=== PATIENT | male | born 1970 | race Caucasian/White ===

== ENCOUNTER 2020-12-06 07:39 | Inpatient (IN) ==
[2020-12-06] MEDS ORDERED: ONDANSETRON 4 MG/2 ML VIAL IV STA (07:50)
[2020-12-06] MEDS ORDERED: ASPIRIN 325 MG TABLET PO STA (07:50)
[2020-12-06] MEDS ORDERED: NITROGLYCERIN 2% OINT 1 INCH/GM PACK TOP STA (07:50)
[2020-12-06] MEDS ORDERED: MORPHINE 10 MG/1 ML VIAL IV STA (07:50)
[2020-12-06] MEDS ORDERED: MORPHINE 2 MG/1 ML SYRINGE ONE (08:01)
[2020-12-06 08:15] LABS: Basophils # 0.1 10*3/uL (0.0-0.2); Basophils % 0.7 % (0.0-0.8); Eosinophils # 0.1 10*3/uL (0.0-0.87); Eosinophils % 1.9 % (0.00-10.9); Hematocrit 54.5 VOL% (42.0-52.0); Hemoglobin 18.9 GM/DL (14.0-18.0); Immature Granulocytes Absolute 0.07 #; Lymphocytes # 1.8 10*3/uL (1.4-4.0); Lymphocytes % 25.8 % (21.2-54.2); Mean Corpuscular HGB Conc 34.7 GM/DL (32-36); Mean Corpuscular Volume 89.3 FL (87-102); Mean Platelet Volume 11.4 FL (9.6-12.0); Monocytes % 8.1 % (1.7-12.7); Neutrophils % 62.5 % (38.7-73.9); Platelet Count 222 T/CUMM (130-400); Red Cell Distribution Width 13.3 % (9.3-17.3)
[2020-12-06 08:39] LABS: Albumin 4.5 G/DL (3.4-5.0); Bilirubin,Total 2.9 MG/DL (0.20-1.00); Calcium 9.4 MG/DL (8.5-10.1); Osmolality,Calculated 276.7 MOS/KG (273-304); Total Protein 8.3 G/DL (6.4-8.2)
[2020-12-06] MEDS ORDERED: ENOXAPARIN 100 MG/ML SYRINGE SUBCUT STA ×2 (09:00)
[2020-12-06] MEDS ORDERED: MAGNESIUM SULF RIDER 2 GM/50 ML PREMIX IV PRN ×2 (09:22→09:24)
[2020-12-06] MEDS ORDERED: ZALEPLON 5 MG CAPSULE PO PRN (09:22)
[2020-12-06] MEDS ORDERED: MAGNESIUM SULF RIDER 4 GM/100 ML PREMIX IV PRN (09:22)
[2020-12-06] MEDS ORDERED: HEPARIN/NACL 0.9% 2 UNITS/ML 2,000 UNIT/1,000 ML BAG IV ONE (09:24)
[2020-12-06] MEDS ORDERED: diphenhydrAMINE CAP 25 MG CAPSULE PO ONE (09:24)
[2020-12-06] MEDS ORDERED: LIDOCAINE 1% 20 ML VIAL ONE (09:24)
[2020-12-06] MEDS ORDERED: POTASSIUM CHLORIDE RIDER 10 MEQ/100 ML PREMIX IV PRN (09:24)
[2020-12-06] MEDS ORDERED: DIAZEPAM 5 MG TABLET PO ONE (09:24)
[2020-12-06] MEDS ORDERED: METOPROLOL TARTRATE 5 MG/5 ML VIAL IV STA (09:27)
[2020-12-06 09:44] LABS: Risk Ratio 9.04; VLDL Cholesterol 67.6 MG/DL
[2020-12-06] MEDS: SODIUM CHLORIDE 0.9% 1,000 ML IV SCH ×2 (09:52→18:30)
[2020-12-06] MEDS ORDERED: fentaNYL 100 MCG/2 ML VIAL ONE (10:25)
[2020-12-06] MEDS ORDERED: MIDAZOLAM 2 MG/2 ML VIAL ONE ×2 (10:25→10:34)
[2020-12-06] MEDS ORDERED: NITROGLYCERIN DRIP 50 MG/250 ML BOTTLE IV ONE (10:25)
[2020-12-06] MEDS ORDERED: VERAPAMIL 5 MG/2 ML VIAL ONE (10:25)
[2020-12-06] MEDS ORDERED: HYDROmorphone 2 MG/1 ML VIAL ONE (10:34)
[2020-12-06] MEDS ORDERED: INFLUENZA VIRUS VACCINE 0.5 ML SYRINGE IM ONE (11:59)
[2020-12-06] MEDS ORDERED: DEXTROSE 50% 25 GM/50 ML VIAL IV PRN (12:23)
[2020-12-06] MEDS ORDERED: GLUCAGON 1 MG VIAL IM PRN (12:23)
[2020-12-06] MEDS ORDERED: SODIUM CHLORIDE 0.9% 1,000 ML IV SCH (12:30)
[2020-12-06] MEDS ORDERED: diphenhydrAMINE CAP 25 MG CAPSULE PO PRN (13:37)
[2020-12-06 14:51] LABS: ABG Base Excess 0.7 MMOL/L (-2.5-2.5); ABG HCO3 24.9 MMOL/L (20-26); ABG Oxygen Saturation 93.9 % (95-100); ABG PCO2 38.1 MM HG (35-48); ABG PH 7.422 (7.35-7.45); ABG PO2 67.7 MM HG (80-95); ABG TCO2 20.4 MMOL/L (23-27)
[2020-12-06] MEDS: LORazepam 1 MG TABLET PO SCH ×2 (15:17→20:30)
[2020-12-06] MEDS: CHLORHEXIDINE 4% SOLN 118 ML BOTTLE TOP SCH ×2 (15:17→20:30)
[2020-12-06 15:44] LABS: Hepatitis B Core IgM Quant 0.07 Index; Hepatitis B Surface Ag Quant < 0.10 Index; Hepatitis B Surface Ag Result Non-Reactive (NonReactive); Hepatitis C Virus Ab Quant 0.02 Index; Hepatitis C Virus Ab Result Non-Reactive (NonReactive)
[2020-12-06] MEDS: carvediloL 6.25 MG TABLET PO SCH (20:30)
[2020-12-06] MEDS: CHLORHEXIDINE 0.12% ORAL RINSE 60 ML BOTTLE SWISH/SPIT SCH (20:30)
[2020-12-06] MEDS ORDERED: ROSUVASTATIN 20 MG TABLET PO SCH (21:00)
[2020-12-06] MEDS ORDERED: CLORAZEPATE 7.5 MG TABLET PO ONE (21:26)
[2020-12-07] MEDS: SODIUM CHLORIDE 0.9% 1,000 ML IV SCH ×2 (02:55→10:14)
[2020-12-07] MEDS ORDERED: VANCOMYCIN 1,000 MG VIAL ONE ×2 (04:18→11:56)
[2020-12-07] MEDS ORDERED: PAPAVERINE 60 MG/2 ML VIAL ONE (04:18)
[2020-12-07] MEDS ORDERED: VANCOMYCIN 500 MG VIAL ONE (04:18)
[2020-12-07] MEDS ORDERED: VANCOMYCIN INJ 1,000 MG in SODIUM CHLORIDE 0.9% 250 ML IV ONE (05:00)
[2020-12-07 05:28] LABS: Basophils # 0.1 10*3/uL (0.0-0.2); Basophils % 0.6 % (0.0-0.8); Eosinophils # 0.1 10*3/uL (0.0-0.87); Eosinophils % 1.7 % (0.00-10.9); Hematocrit 49.2 VOL% (42.0-52.0); Hemoglobin 16.8 GM/DL (14.0-18.0); Immature Granulocytes % 0.6 %; Immature Granulocytes Absolute 0.05 #; Lymphocytes # 1.8 10*3/uL (1.4-4.0); Lymphocytes % 22.4 % (21.2-54.2); Mean Corpuscular HGB Conc 34.1 GM/DL (32-36); Mean Corpuscular Volume 90.1 FL (87-102); Monocytes % 6.8 % (1.7-12.7); Neutrophils % 67.9 % (38.7-73.9); Platelet Count 203 T/CUMM (130-400); Red Blood Count 5.46 MC/CUMM (3.8-5.5); Red Cell Distribution Width 13.3 % (9.3-17.3); White Blood Count 8.1 T/CUMM (4-12)
[2020-12-07] MEDS ORDERED: LORazepam 1 MG TABLET PO ONE (05:30)
[2020-12-07 05:41] LABS: Calcium 9.1 MG/DL (8.5-10.1); Osmolality,Calculated 273.7 MOS/KG (273-304); Potassium 3.9 MMOL/L (3.5-5.1)
[2020-12-07] MEDS ORDERED: IPRATROPIUM 500 MCG/2.5 ML NEB RESP TX ONE (06:00)
[2020-12-07] MEDS ORDERED: ALBUTEROL 2.5 MG/3 ML NEB RESP TX ONE (06:00)
[2020-12-07] MEDS ORDERED: FAMOTIDINE 20 MG TABLET PO ONE (06:00)
[2020-12-07] MEDS ORDERED: AMINOCAPROIC ACID 5,000 MG/20 ML VIAL ONE ×4 (06:04)
[2020-12-07] MEDS ORDERED: MIDAZOLAM 10 MG/2 ML VIAL ONE ×5 (06:10→11:50)
[2020-12-07] MEDS ORDERED: SUFentanil 250 MCG/5 ML AMP ONE ×3 (06:12)
[2020-12-07] MEDS ORDERED: ePHEDrine 50 MG/ML VIAL ONE (06:14)
[2020-12-07] MEDS ORDERED: SEVOFLURANE 1 UNIT/15 MINUTE INH ONE ×24 (06:19→14:07)
[2020-12-07] MEDS ORDERED: VECURONIUM 10 MG VIAL IV ONE ×4 (06:19→11:50)
[2020-12-07] MEDS ORDERED: LIDOCAINE 2% 5 ML VIAL ONE ×3 (06:19→10:51)
[2020-12-07] MEDS ORDERED: ETOMIDATE 40 MG/20 ML VIAL IV ONE (06:19)
[2020-12-07] MEDS ORDERED: SUCCINYLCHOLINE 200 MG/10 ML VIAL ONE (06:19)
[2020-12-07] MEDS ORDERED: NITROGLYCERIN DRIP 50 MG/250 ML BOTTLE IV ONE (06:20)
[2020-12-07] MEDS ORDERED: PHENYLEPHRINE DRIP 20 MG/250 ML PREMIX IV ONE (06:20)
[2020-12-07] MEDS ORDERED: HEPARIN/NACL 0.9% 2 UNITS/ML 1,000 UNIT/500 ML BAG IV ONE (06:20)
[2020-12-07] MEDS ORDERED: MINERAL OIL/PETROLATUM OPH OINT 3.5 GM TUBE ONE (06:20)
[2020-12-07] MEDS ORDERED: PHENYLEPHRINE 1 MG/10 ML SYRINGE IV ONE (06:20)
[2020-12-07 07:36] LABS: ABG Base Excess -2.6 MMOL/L (-2.5-2.5); ABG HCO3 22.3 MMOL/L (20-26); ABG Oxygen Saturation 99.1 % (95-100); ABG PCO2 39.3 MM HG (35-48); ABG PH 7.366 (7.35-7.45); ABG TCO2 18.9 MMOL/L (23-27); Glucose Heart Surgery 124 MG/DL (74-106); Ionized Calcium Arterial 1.11 MMOL/L (1.21-1.46); PCO2 Patient Temp Arterial 39.3 MMHG; PH Patient Temp Arterial 7.366; Patient Temperature 37 CELCIUS; Potassium Heart/CVR 4.1 MMOL/L (3.5-5.1); Sodium Heart/CVR 139 MMOL/L (135-145)
[2020-12-07] MEDS ORDERED: GLYCOPYRROLATE 0.4 MG/2 ML VIAL ONE (07:39)
[2020-12-07] MEDS ORDERED: CALCIUM CHLORIDE 1,000 MG/10 ML VIAL IV ONE ×2 (07:39→10:56)
[2020-12-07 08:00] LABS: Bacteria,Urine Occasional /HPF (Few); Bilirubin,Urine Negative (Negative); Blood, Urine Negative (Negative); Glucose,Urine (UA) Negative (Negative); Ketones,Urine Negative (Negative); Nitrite,Urine Negative (Negative); Protein,Urine Negative; RBC,Urine 1 /HPF (0-4); Squamous Epithelial Cell,Urine Occasional /HPF (0-10); Urine Appearance CLEAR (Clear); Urine Color Straw (Yellow); Urine Specific Gravity 1.006 (1.001-1.035); Urine Urobilinogen < 2.0 EU/DL (0.2-1.0)
[2020-12-07] MEDS ORDERED: VALSARTAN 80 MG TABLET PO SCH (09:00)
[2020-12-07] MEDS ORDERED: PANTOPRAZOLE 40 MG TABLET PO SCH (09:00)
[2020-12-07] MEDS ORDERED: ISOSORBIDE MONONITRATE 30 MG TABLET PO SCH (09:00)
[2020-12-07] MEDS ORDERED: ASPIRIN EC 81 MG TABLET PO SCH (09:00)
[2020-12-07 09:13] LABS: Hematocrit Heart Surgery 37.6 PERCENT (42-52); Hemoglobin Heart Surgery 12.2 G/DL (14.0-18.0); PCO2 Patient Temp Venous 36.7 MM HG; PH Patient Temp Venous 7.415; PO2 Patient Temp Venous 40.4 MM HG; Potassium Heart/CVR 4.9 MMOL/L (3.5-5.1); VBG Base Excess -0.7 MEQ/L (0-4); VBG HCO3 23.5 MEQ/L (24-28); VBG Oxygen Saturation 80.8 %; VBG PCO2 40.5 MMHG (41-51); VBG PH 7.386; VBG PO2 46.4 MMHG (17-40); VBG Total CO2 21.5 MMOL/L
[2020-12-07] MEDS ORDERED: PHENYLEPHRINE DRIP 40 MG/250 ML PREMIX IV ONE (09:28)
[2020-12-07 09:47] LABS: Hemoglobin Heart Surgery 13.7 G/DL (14.0-18.0); PCO2 Patient Temp Venous 37.6 MM HG; PH Patient Temp Venous 7.417; PO2 Patient Temp Venous 38.1 MM HG; Potassium Heart/CVR 5.9 MMOL/L (3.5-5.1); VBG Base Excess -0.9 MEQ/L (0-4); VBG HCO3 24.4 MEQ/L (24-28); VBG Oxygen Saturation 83.1 %; VBG PCO2 42.9 MMHG (41-51); VBG PH 7.373; VBG PO2 47.1 MMHG (17-40); VBG Total CO2 25.7 MMOL/L
[2020-12-07] MEDS ORDERED: ESMOLOL 100 MG/10 ML VIAL IV ONE (10:05)
[2020-12-07] MEDS ORDERED: ALBUMIN 5% 25.0 GM/500 ML VIAL IV ONE (10:07)
[2020-12-07] MEDS: CHLORHEXIDINE 4% SOLN 118 ML BOTTLE TOP SCH (10:13)
[2020-12-07] MEDS: carvediloL 6.25 MG TABLET PO SCH (10:13)
[2020-12-07] MEDS: LORazepam 1 MG TABLET PO SCH (10:13)
[2020-12-07] MEDS: CHLORHEXIDINE 0.12% ORAL RINSE 60 ML BOTTLE SWISH/SPIT SCH ×2 (10:14→20:47)
[2020-12-07 10:15] LABS: Hematocrit Heart Surgery 42.1 PERCENT (42-52); Hemoglobin Heart Surgery 13.7 G/DL (14.0-18.0); PH Patient Temp Venous 7.402; PO2 Patient Temp Venous 39.9 MM HG; Potassium Heart/CVR 6.3 MMOL/L (3.5-5.1); VBG Base Excess 0.2 MEQ/L (0-4); VBG HCO3 24.1 MEQ/L (24-28); VBG Oxygen Saturation 73.9 %; VBG PH 7.402; VBG PO2 39.9 MMHG (17-40); VBG Total CO2 21.7 MMOL/L
[2020-12-07 10:51] LABS: ABG HCO3 22.7 MMOL/L (20-26); ABG PCO2 42.5 MM HG (35-48); ABG PH 7.352 (7.35-7.45); ABG TCO2 20.4 MMOL/L (23-27); Glucose Heart Surgery 185 MG/DL (74-106); Hematocrit Heart Surgery 43.4 PERCENT (42-52); Hemoglobin Heart Surgery 14.2 G/DL (14.0-18.0); Ionized Calcium Arterial 1.77 MMOL/L (1.21-1.46); PCO2 Patient Temp Arterial 42.5 MMHG; PH Patient Temp Arterial 7.352; Patient Temperature 37 CELCIUS; Potassium Heart/CVR 4.6 MMOL/L (3.5-5.1); Sodium Heart/CVR 136 MMOL/L (135-145)
[2020-12-07] MEDS ORDERED: methylPREDNISolone SOD SUC 1,000 MG/8 ML VIAL ONE (10:51)
[2020-12-07] MEDS ORDERED: MANNITOL 100 GM/500 ML BAG IV ONE (10:51)
[2020-12-07] MEDS ORDERED: MAGNESIUM SULFATE 5 GM/10 ML VIAL IV ONE (10:51)
[2020-12-07] MEDS ORDERED: ALBUMIN 25% 25 GM/100 ML VIAL IV ONE (10:51)
[2020-12-07] MEDS ORDERED: HEPARIN 10,000 UNIT/10 ML VIAL ONE (10:52)
[2020-12-07] MEDS ORDERED: PROTAMINE SULFATE 50 MG/5 ML VIAL IV ONE (10:52)
[2020-12-07] MEDS ORDERED: FUROSEMIDE 20 MG/2 ML VIAL ONE (10:52)
[2020-12-07] MEDS ORDERED: SODIUM BICARBONATE 50 MEQ/50 ML VIAL IV ONE (10:52)
[2020-12-07] MEDS ORDERED: PROTAMINE SULFATE 250 MG/25 ML VIAL IV ONE (10:52)
[2020-12-07] MEDS ORDERED: ACETAMINOPHEN 650 MG SUPP RECTAL PRN (11:07)
[2020-12-07] MEDS ORDERED: DEXTROSE 50% 25 GM/50 ML VIAL IV PRN ×2 (11:07)
[2020-12-07] MEDS ORDERED: CALCIUM CHLORIDE 1,000 MG/10 ML SYRINGE IV PRN (11:07)
[2020-12-07] MEDS ORDERED: NITROPRUSSIDE 100 MG in DEXTROSE 5% 250 ML IV PRN (11:07)
[2020-12-07] MEDS ORDERED: ONDANSETRON 4 MG/2 ML VIAL IV PRN (11:07)
[2020-12-07] MEDS ORDERED: MORPHINE 10 MG/1 ML VIAL IV PRN (11:07)
[2020-12-07] MEDS ORDERED: INSULIN REGULAR 100 UNIT/ML IV ONE (11:07)
[2020-12-07] MEDS ORDERED: VECURONIUM 10 MG VIAL IV PRN ×2 (11:07)
[2020-12-07] MEDS ORDERED: INSULIN REGULAR 100 UNIT/ML IV PRN (11:07)
[2020-12-07] MEDS ORDERED: MIDAZOLAM 10 MG/2 ML VIAL IV PRN (11:07)
[2020-12-07] MEDS ORDERED: MAGNESIUM SULF RIDER 4 GM/100 ML PREMIX IV PRN (11:07)
[2020-12-07] MEDS ORDERED: PHENYLEPHRINE DRIP 40 MG/250 ML PREMIX IV PRN (11:07)
[2020-12-07] MEDS ORDERED: MAGNESIUM SULF RIDER 2 GM/50 ML PREMIX IV PRN (11:07)
[2020-12-07] MEDS ORDERED: LACTATED RINGERS 250 ML IV PRN (11:07)
[2020-12-07] MEDS ORDERED: POTASSIUM CHLORIDE RIDER 10 MEQ/100 ML PREMIX IV PRN (11:07)
[2020-12-07] MEDS ORDERED: CHLORHEXIDINE 4% SOLN 118 ML BOTTLE TOP PRN (11:07)
[2020-12-07] MEDS ORDERED: SODIUM CHLORIDE 0.45% 1,000 ML IV SCH ×2 (11:30)
[2020-12-07] MEDS ORDERED: INSULIN REGULAR DRIP 100 ML IV SCH (11:30)
[2020-12-07] MEDS ORDERED: PROTAMINE SULFATE 50 MG/5 ML VIAL IV STA (11:34)
[2020-12-07] MEDS ORDERED: SUFentanil 50 MCG/ML AMP ONE (11:51)
[2020-12-07 12:06] LABS: INR 1.1; PT Patient Result 12.7 SECS (10.5-12.0); Partial Thromboplastin Time 27.9 SECS (23.9-33.8)
[2020-12-07 13:54] LABS: ABG Base Excess -0.5 MMOL/L (-2.5-2.5); ABG Oxygen Saturation 99.7 % (95-100); ABG PCO2 38.5 MM HG (35-48); ABG PH 7.402 (7.35-7.45); ABG TCO2 20.7 MMOL/L (23-27); Glucose Heart Surgery 161 MG/DL (74-106); Hematocrit Heart Surgery 42.7 PERCENT (42-52); Hemoglobin Heart Surgery 13.9 G/DL (14.0-18.0); Potassium Heart/CVR 3.8 MMOL/L (3.5-5.1)
[2020-12-07 13:55] LABS: Basophils # 0.1 10*3/uL (0.0-0.2); Basophils % 0.3 % (0.0-0.8); Eosinophils # 0.1 10*3/uL (0.0-0.87); Eosinophils % 0.2 % (0.00-10.9); Hematocrit 41.1 VOL% (42.0-52.0); Hemoglobin 13.7 GM/DL (14.0-18.0); Immature Granulocytes % 0.9 %; Lymphocytes # 1.1 10*3/uL (1.4-4.0); Lymphocytes % 4.9 % (21.2-54.2); Mean Corpuscular HGB Conc 33.3 GM/DL (32-36); Mean Corpuscular Volume 92.4 FL (87-102); Mean Platelet Volume 11.1 FL (9.6-12.0); Monocytes % 5.2 % (1.7-12.7); Neutrophils % 88.5 % (38.7-73.9); Platelet Count 210 T/CUMM (130-400); Red Blood Count 4.45 MC/CUMM (3.8-5.5); Red Cell Distribution Width 13.5 % (9.3-17.3); White Blood Count 21.3 T/CUMM (4-12)
[2020-12-07] MEDS: ALBUMIN 5% 12.5 GM/250 ML VIAL IV PRN ×3 (13:55→17:23)
[2020-12-07 14:07] LABS: INR 1.1; Partial Thromboplastin Time 28.9 SECS (23.9-33.8)
[2020-12-07] MEDS: LACTATED RINGERS 1,000 ML IV PRN ×4 (14:14→21:28)
[2020-12-07 14:15] LABS: CKMB % 5.4 %
[2020-12-07 14:17] LABS: Band Neutrophils 9 % (0-10); High Sensitive Troponin I* 6292.8 ng/L (0-78); Lymphocytes 4 % (20-55); Segmented Neutrophils 86 % (50-85); Total Cells Counted 100
[2020-12-07 14:18] LABS: Reactive Lymphocytes Few
[2020-12-07 14:19] LABS: Platelet Estimate Normal
[2020-12-07 14:23] LABS: Albumin 3.3 G/DL (3.4-5.0); Bilirubin,Total 3.2 MG/DL (0.20-1.00); Calcium 8.7 MG/DL (8.5-10.1); Potassium 3.9 MMOL/L (3.5-5.1); Total Protein 5.4 G/DL (6.4-8.2)
[2020-12-07 15:10] LABS: ABG Base Excess -0.5 MMOL/L (-2.5-2.5); ABG HCO3 23.8 MMOL/L (20-26); ABG Oxygen Saturation 96.7 % (95-100); ABG PCO2 38.2 MM HG (35-48); ABG PH 7.413 (7.35-7.45); ABG PO2 93.4 MM HG (80-95); Glucose Heart Surgery 148 MG/DL (74-106); Hemoglobin Heart Surgery 12.9 G/DL (14.0-18.0); Potassium Heart/CVR 3.8 MMOL/L (3.5-5.1)
[2020-12-07] MEDS: POTASSIUM CHLORIDE RIDER 20 MEQ/100 ML PREMIX IV PRN ×4 (15:18→23:09)
[2020-12-07] MEDS: KETOROLAC 30 MG/1 ML VIAL IV SCH ×2 (16:32→22:33)
[2020-12-07 17:40] LABS: ABG Base Excess 0.2 MMOL/L (-2.5-2.5); ABG HCO3 25.5 MMOL/L (20-26); ABG Oxygen Saturation 93.2 % (95-100); ABG PCO2 44.1 MM HG (35-48); ABG PO2 70.5 MM HG (80-95); ABG TCO2 26.9 MMOL/L (23-27); Glucose Heart Surgery 158 MG/DL (74-106); Hemoglobin Heart Surgery 11.7 G/DL (14.0-18.0); Potassium Heart/CVR 4.3 MMOL/L (3.5-5.1)
[2020-12-07] MEDS ORDERED: FUROSEMIDE 40 MG/4 ML VIAL IV PRN (18:16)
[2020-12-07 19:34] LABS: ABG Base Excess 0.4 MMOL/L (-2.5-2.5); ABG HCO3 24.6 MMOL/L (20-26); ABG Oxygen Saturation 91.1 % (95-100); ABG PCO2 42.7 MM HG (35-48); ABG PH 7.384 (7.35-7.45); ABG PO2 62.2 MM HG (80-95); Glucose Heart Surgery 172 MG/DL (74-106); Hematocrit Heart Surgery 33.8 PERCENT (42-52); Hemoglobin Heart Surgery 10.9 G/DL (14.0-18.0); Potassium Heart/CVR 4.1 MMOL/L (3.5-5.1)
[2020-12-07 19:59] LABS: CKMB % 5.8 %
[2020-12-07 20:03] LABS: High Sensitive Troponin I* 6937.6 ng/L (0-78)
[2020-12-07 20:29] LABS: ABG Base Excess 0.4 MMOL/L (-2.5-2.5); ABG HCO3 24.7 MMOL/L (20-26); ABG Oxygen Saturation 94.1 % (95-100); ABG PCO2 40.8 MM HG (35-48); ABG PH 7.399 (7.35-7.45); ABG PO2 69.9 MM HG (80-95); ABG TCO2 22.7 MMOL/L (23-27); Glucose Heart Surgery 166 MG/DL (74-106); Hematocrit Heart Surgery 33.3 PERCENT (42-52); Hemoglobin Heart Surgery 10.8 G/DL (14.0-18.0); Potassium Heart/CVR 4.4 MMOL/L (3.5-5.1)
[2020-12-07 21:46] LABS: ABG Base Excess 0.9 MMOL/L (-2.5-2.5); ABG HCO3 25.1 MMOL/L (20-26); ABG Oxygen Saturation 94.4 % (95-100); ABG PH 7.411 (7.35-7.45); ABG PO2 70.9 MM HG (80-95); Glucose Heart Surgery 161 MG/DL (74-106); Hematocrit Heart Surgery 32.1 PERCENT (42-52); Hemoglobin Heart Surgery 10.4 G/DL (14.0-18.0); Potassium Heart/CVR 4.3 MMOL/L (3.5-5.1)
[2020-12-07 23:04] LABS: ABG Base Excess 0.8 MMOL/L (-2.5-2.5); ABG Oxygen Saturation 94.2 % (95-100); ABG PCO2 37.2 MM HG (35-48); ABG PH 7.432 (7.35-7.45); ABG PO2 69.2 MM HG (80-95); ABG TCO2 22.4 MMOL/L (23-27); Glucose Heart Surgery 159 MG/DL (74-106); Hematocrit Heart Surgery 32.4 PERCENT (42-52); Hemoglobin Heart Surgery 10.5 G/DL (14.0-18.0); Potassium Heart/CVR 4.4 MMOL/L (3.5-5.1)
[2020-12-07] MEDS ORDERED: VANCOMYCIN INJ 1,000 MG in SODIUM CHLORIDE 0.9% 250 ML IV SCH (23:30)
[2020-12-08] MEDS: INSULIN REGULAR 100 UNIT/ML SUBCUT SCH ×6 (00:04→21:34)
[2020-12-08 04:21] LABS: Basophils % 0.1 % (0.0-0.8); Hematocrit 29.8 VOL% (42.0-52.0); Hemoglobin 9.8 GM/DL (14.0-18.0); Immature Granulocytes % 0.6 %; Lymphocytes # 0.8 10*3/uL (1.4-4.0); Lymphocytes % 4.5 % (21.2-54.2); Mean Corpuscular HGB Conc 32.9 GM/DL (32-36); Mean Corpuscular Volume 94.3 FL (87-102); Mean Platelet Volume 11.7 FL (9.6-12.0); Monocytes % 6.1 % (1.7-12.7); Neutrophils % 88.7 % (38.7-73.9); Platelet Count 157 T/CUMM (130-400); Red Blood Count 3.16 MC/CUMM (3.8-5.5); Red Cell Distribution Width 13.7 % (9.3-17.3); White Blood Count 17.6 T/CUMM (4-12)
[2020-12-08 04:22] LABS: ABG HCO3 25.2 MMOL/L (20-26); ABG PCO2 38.8 MM HG (35-48); ABG PH 7.423 (7.35-7.45); ABG PO2 63.8 MM HG (80-95); Glucose Heart Surgery 140 MG/DL (74-106); Hematocrit Heart Surgery 31.1 PERCENT (42-52); Hemoglobin Heart Surgery 10.1 G/DL (14.0-18.0); Potassium Heart/CVR 4.1 MMOL/L (3.5-5.1)
[2020-12-08 04:41] LABS: Hypochromasia 1+; Lymphocytes 4 % (20-55); Microcytosis 1+; Segmented Neutrophils 95 % (50-85); Total Cells Counted 100
[2020-12-08 04:42] LABS: Platelet Estimate Adequate
[2020-12-08 04:49] LABS: CKMB % 3.7 %
[2020-12-08] MEDS: POTASSIUM CHLORIDE RIDER 20 MEQ/100 ML PREMIX IV PRN (05:05)
[2020-12-08] MEDS: KETOROLAC 30 MG/1 ML VIAL IV SCH ×5 (05:05→21:35)
[2020-12-08 05:06] LABS: Albumin 3.3 G/DL (3.4-5.0); Bilirubin,Direct 0.22 MG/DL (0.0-0.20); Bilirubin,Total 1.3 MG/DL (0.20-1.00); Calcium 8.2 MG/DL (8.5-10.1); Osmolality,Calculated 285.1 MOS/KG (273-304); Potassium 4.4 MMOL/L (3.5-5.1); Total Protein 5.4 G/DL (6.4-8.2)
[2020-12-08] MEDS: CHLORHEXIDINE 0.12% ORAL RINSE 60 ML BOTTLE SWISH/SPIT SCH ×2 (08:00→21:34)
[2020-12-08] MEDS: MIDAZOLAM 2 MG/2 ML VIAL IV PRN (08:55)
[2020-12-08] MEDS: VALSARTAN 80 MG TABLET PO SCH (09:30)
[2020-12-08] MEDS: carvediloL 6.25 MG TABLET PO SCH ×2 (09:33→16:53)
[2020-12-08] MEDS: NICOTINE 21 MG/24 HR PATCH TRANSDERM PRN (09:41)
[2020-12-08] MEDS ORDERED: ALUMINUM/MAGNES/SIMETH MAX STR 30 ML UDCUP PO PRN (09:46)
[2020-12-08] MEDS ORDERED: SODIUM CHLOR 0.45% KCL 20 MEQ 20 MEQ/1,000 ML BAG IV SCH (09:46)
[2020-12-08] MEDS ORDERED: ZALEPLON 5 MG CAPSULE PO PRN (09:46)
[2020-12-08] MEDS ORDERED: MORPHINE 2 MG/1 ML SYRINGE IV PRN (09:46)
[2020-12-08] MEDS ORDERED: GLUCAGON 1 MG VIAL IM PRN ×2 (09:46)
[2020-12-08] MEDS ORDERED: ACETAMINOPHEN 325 MG TABLET PO PRN (09:46)
[2020-12-08] MEDS ORDERED: IBUPROFEN 400 MG TABLET PO PRN (09:46)
[2020-12-08] MEDS ORDERED: MAGNESIUM HYDROXIDE SUSP 30 ML UDCUP PO PRN (09:46)
[2020-12-08] MEDS ORDERED: DEXTROSE 50% 25 GM/50 ML VIAL IV PRN ×2 (09:46)
[2020-12-08] MEDS ORDERED: oxyCODONE/ACETAMINOPHEN 5-325 MG TABLET PO PRN (09:46)
[2020-12-08] MEDS ORDERED: MAGNESIUM SULF RIDER 4 GM/100 ML PREMIX IV PRN (09:46)
[2020-12-08] MEDS ORDERED: ONDANSETRON 4 MG/2 ML VIAL IV PRN (09:46)
[2020-12-08] MEDS ORDERED: MAGNESIUM SULF RIDER 2 GM/50 ML PREMIX IV PRN (09:46)
[2020-12-08] MEDS: ROSUVASTATIN 20 MG TABLET PO SCH (21:34)
[2020-12-09] MEDS: INSULIN REGULAR 100 UNIT/ML SUBCUT SCH ×5 (00:22→16:09)
[2020-12-09] MEDS: KETOROLAC 30 MG/1 ML VIAL IV SCH ×4 (04:05→21:11)
[2020-12-09 04:48] LABS: Basophils % 0.1 % (0.0-0.8); Hematocrit 29.6 VOL% (42.0-52.0); Hemoglobin 9.7 GM/DL (14.0-18.0); Immature Granulocytes % 0.8 %; Immature Granulocytes Absolute 0.16 #; Lymphocytes # 1.6 10*3/uL (1.4-4.0); Lymphocytes % 8.3 % (21.2-54.2); Mean Corpuscular HGB Conc 32.8 GM/DL (32-36); Mean Corpuscular Volume 93.1 FL (87-102); Mean Platelet Volume 12.2 FL (9.6-12.0); Monocytes % 6.8 % (1.7-12.7); Platelet Count 177 T/CUMM (130-400); Red Blood Count 3.18 MC/CUMM (3.8-5.5); Red Cell Distribution Width 13.9 % (9.3-17.3); White Blood Count 19.2 T/CUMM (4-12)
[2020-12-09 05:29] LABS: Albumin 3.6 G/DL (3.4-5.0); Bilirubin,Direct 0.21 MG/DL (0.0-0.20); Bilirubin,Total 1.2 MG/DL (0.20-1.00); CKMB % 1.1 %; Calcium 8.6 MG/DL (8.5-10.1); Osmolality,Calculated 279.5 MOS/KG (273-304); Total Protein 6.5 G/DL (6.4-8.2)
[2020-12-09 05:31] LABS: High Sensitive Troponin I* 2859.6 ng/L (0-78)
[2020-12-09] MEDS ORDERED: FUROSEMIDE 40 MG/4 ML VIAL IV ONE (06:00)
[2020-12-09] MEDS: NICOTINE 21 MG/24 HR PATCH TRANSDERM PRN (09:45)
[2020-12-09] MEDS: VALSARTAN 80 MG TABLET PO SCH (09:45)
[2020-12-09] MEDS: ASPIRIN EC 325 MG TABLET PO SCH (09:46)
[2020-12-09] MEDS: DOCUSATE SODIUM 100 MG CAPSULE PO SCH (09:46)
[2020-12-09] MEDS: PANTOPRAZOLE 40 MG TABLET PO SCH (09:46)
[2020-12-09] MEDS: FERROUS SULFATE 325 MG TABLET PO SCH (09:46)
[2020-12-09] MEDS: carvediloL 6.25 MG TABLET PO SCH ×2 (09:46→17:12)
[2020-12-09] MEDS: CHLORHEXIDINE 0.12% ORAL RINSE 60 ML BOTTLE SWISH/SPIT SCH ×2 (09:51→21:12)
[2020-12-09] MEDS: ROSUVASTATIN 20 MG TABLET PO SCH (21:08)
[2020-12-10] MEDS: KETOROLAC 30 MG/1 ML VIAL IV SCH ×2 (03:55→11:13)
[2020-12-10 06:45] LABS: Basophils % 0.2 % (0.0-0.8); Eosinophils % 0.3 % (0.00-10.9); Hematocrit 26.7 VOL% (42.0-52.0); Hemoglobin 8.7 GM/DL (14.0-18.0); Immature Granulocytes % 0.7 %; Immature Granulocytes Absolute 0.09 #; Lymphocytes # 1.9 10*3/uL (1.4-4.0); Lymphocytes % 14.6 % (21.2-54.2); Mean Corpuscular HGB Conc 32.6 GM/DL (32-36); Mean Corpuscular Volume 93.7 FL (87-102); Mean Platelet Volume 12.9 FL (9.6-12.0); Monocytes % 7.5 % (1.7-12.7); Neutrophils % 76.7 % (38.7-73.9); Platelet Count 174 T/CUMM (130-400); Red Blood Count 2.85 MC/CUMM (3.8-5.5); Red Cell Distribution Width 13.9 % (9.3-17.3); White Blood Count 13.2 T/CUMM (4-12)
[2020-12-10 07:16] LABS: Alanine Aminotransferase 23 U/L (16-61); Albumin 3.2 G/DL (3.4-5.0); Alkaline Phosphatase 62 U/L (45-117); Aspartate Amino Transferase 21 U/L (0-37); Bilirubin,Indirect 1.5 MG/DL (0.0-1.0); Blood Urea Nitrogen 20 MG/DL (7-18); Calcium 8.5 MG/DL (8.5-10.1); Carbon Dioxide 28 MMOL/L (21-32); Estimated Glom Filtration Rate 127 ML/MIN; Glucose 87 MG/DL (74-106); Osmolality,Calculated 278.5 MOS/KG (273-304); Potassium 3.8 MMOL/L (3.5-5.1); Sodium 139 MMOL/L (136-145); Total Protein 6.2 G/DL (6.4-8.2)
[2020-12-10 07:46] VITALS: BP 130/78
[2020-12-10] MEDS: carvediloL 6.25 MG TABLET PO SCH (08:21)
[2020-12-10] MEDS: VALSARTAN 80 MG TABLET PO SCH (08:22)
[2020-12-10] MEDS: ASPIRIN EC 325 MG TABLET PO SCH (08:22)
[2020-12-10] MEDS: DOCUSATE SODIUM 100 MG CAPSULE PO SCH (08:22)
[2020-12-10] MEDS: FERROUS SULFATE 325 MG TABLET PO SCH (08:23)
[2020-12-10] MEDS: PANTOPRAZOLE 40 MG TABLET PO SCH (08:24)
[2020-12-10] MEDS: CHLORHEXIDINE 0.12% ORAL RINSE 60 ML BOTTLE SWISH/SPIT SCH (08:24)
[2020-12-10] MEDS: POTASSIUM CHLORIDE 20 MEQ TABLET PO PRN ×2 (08:25→09:34)
== END 2020-12-10 11:12 | disposition home or self-care (01) | DRG 234 ==
LOC: N.ED 07:39 → N.EDINP 07:39 → N.ICU 10:12 → N.CVR 12-07 11:23 → N.ICU 12-08 10:45 → N.TELES 12-08 15:37
PROVIDERS: ADMIT Internal Medicine Cardiovascular Disease; ATTEND Internal Medicine Cardiovascular Disease
PROC: CLCCHCL (ICD-10-PCS; 2020-12-06 10:15)